=== PATIENT | female | born 1955 | race Caucasian/White ===

== ENCOUNTER → 2023-07-17 15:00 | Outpatient (CLI) | payer OTHER, SELFPAY ==
[2023-07-17 15:28] LABS: Add Manual Diff / Slide Review NO; Basophils Absolute Auto 0 /uL (0-100); Basophils Percent Auto 0.5 % (0-2); Eosinophils Absolute Auto 100 /uL (0-450); Eosinophils Percent Auto 1.1 % (2-4); Hematocrit 37.1 % (36-46); Hemoglobin 12.7 g/dL (12.0-16.0); Lymphocytes Absolute Auto 2300 /uL (1100-4500); Lymphocytes Percent Auto 37.5 % (25-40); Mean Corpuscular HGB Conc 34.2 % (30-36); Mean Corpuscular Hemoglobin 28.4 PG (26-34); Mean Corpuscular Volume 82.9 fL (80-100); Monocytes Absolute Auto 500 /uL (0-900); Monocytes Percent Auto 7.8 % (3-14); Neutrophils Absolute Auto 3300 /uL (1500-7000); Neutrophils Percent Auto 53.1 % (50-75); Platelet Count 188 X10^3/uL (150-400); Red Blood Cell Count 4.48 X10^6/uL (4.0-5.2); Red Cell Distribution Width 13.1 % (11.6-14.8); White Blood Cell Count 6.3 X10^3/uL (4.5-11.0)
[2023-07-17 15:59] LABS: Alanine Aminotransferase 40 IU/L (<35); Albumin 4.2 g/dL (3.5-5.0); Albumin Globulin Ratio 1.6 (1.0-2.8); Alkaline Phosphatase 75 U/L (38-126); Aspartate Aminotransferase 32 IU/L (14-36); BUN Creatinine Ratio 12.3 (6-22); Bilirubin Total 0.5 mg/dL (0.2-1.3); Blood Urea Nitrogen 8 mg/dL (7-17); Calcium 9.2 mg/dL (8.4-10.2); Carbon Dioxide 27 mmol/L (22-32); Chloride 99 mmol/L (98-107); Cholesterol 227 mg/dL (140-199); Estimated Glomerular Filt Rate > 60 mL/min (>60); Globulin 2.7 g/dL (1.7-4.1); Glucose 87 mg/dL (80-110); HDL Cholesterol 63 mg/dL (40-60); HEMOLYSIS < 15 (0-50); LDL Cholesterol Calculated 139 mg/dL (<100); Potassium 4.3 mmol/L (3.4-5.1); Sodium 133 mmol/L (137-145); Total Protein 6.9 g/dL (6.3-8.2); Triglycerides 125 mg/dL (35-150)
[2023-07-17 16:14] LABS: Vitamin D 25 Hydroxy (D3) 29.8 ng/mL (30.0-100.0)
[2023-07-17 16:26] LABS: TSH w/ Reflex to FT4 1.78 uIU/mL (0.47-4.68)
== END ==
PROVIDERS: PCP Student in an Organized Health Care Education/Training Program; Referring Provider Student in an Organized Health Care Education/Training Program; Visit Provider Student in an Organized Health Care Education/Training Program
DX: R53.83 Other fatigue (principal); Z13.220 Encounter for screening for lipoid disorders
CPT/HCPCS: 36415; 80053; 80061; 82306; 84443; 85025

== ENCOUNTER → 2023-08-26 14:48 | Outpatient (CLI) | payer OTHER, SELFPAY ==
--- NOTE | 2023-08-26 14:49 | DI.MG.S_ITS ---
BILATERAL DIGITAL SCREENING MAMMOGRAM 3D/2D WITH CAD: 08/26/2023 CLINICAL: Routine screening. Family history of breast cancer. Comparison is made to exams dated: 05/10/2021 mammogram, 05/25/2019 mammogram, and 03/10/2018 mammogram - outside facility. Both breasts are heterogeneously dense, which may obscure small masses (category c / 51-75% glandular tissue). Current study was also evaluated with a Computer Aided Detection (CAD) system. No significant masses, calcifications, or other findings are seen in either breast. There has been no significant interval change. IMPRESSION: NEGATIVE There is no mammographic evidence of malignancy. A 1 year screening mammogram is recommended. Based on Tyrer-Cuzick model (a risk assessment model), the patient's lifetime risk is 24.9% and her 10 year risk is 14.4%. If a patient has an elevated risk, a more comprehensive evaluation should be considered and/or a referral to a genetic counselor. The [place] [employer], [employer], and NCCN Guidelines advise the consideration of Breast MRI as an adjunct to screening mammography in patients whose Lifetime risk to develop breast cancer is 20% or higher. This exam was interpreted at Station ID: [id number]. NOTE: For mammograms, a report in lay terms will be sent to the patient. Approximately 15% of breast malignancies will not be visualized mammographically. In the management of a palpable breast mass, a negative mammogram must not discourage biopsy of a clinically suspicious lesion. Electronically Signed By: Tyrese deleon/aime:08/26/2023 16:48:21 letter sent: Normal Exam ACR BI-RADS Category 1: Negative [id number]
== END ==
PROVIDERS: PCP Student in an Organized Health Care Education/Training Program; Referring Provider Student in an Organized Health Care Education/Training Program; Visit Provider Student in an Organized Health Care Education/Training Program
DX: Z12.31 Encounter for screening mammogram for malignant neoplasm of breast (principal); Z80.3 Family history of malignant neoplasm of breast
CPT/HCPCS: 77063; 77067

== ENCOUNTER → 2023-12-10 11:40 | Outpatient (CLI) | payer OTHER, SELFPAY ==
--- NOTE | 2023-12-10 11:41 | DI.RAD.S_ITS ---
Bone Density Report Name: JAKE NELSON Age: 68 Sex: Female Ethnicity: White Date of : 1955 Indication: postmenopausal; screening for osteoporosis; Referring Provider: EDELMIRA MCINTOSH Study: Bone densitometry was performed. Exam Date: December 10, 2023 Accession number: [id number] Bone Density: Region BMD T-score Z-score Classification AP Spine(L1-L4) 0.771 -2.5 -0.5 Osteoporosis Femoral Neck (Left) 0.610 -2.2 -0.4 Osteopenia Total Hip (Left) 0.744 -1.6 -0.2 Osteopenia Femoral Neck (Right) 0.593 -2.3 -0.6 Osteopenia Total Hip (Right) 0.725 -1.8 -0.3 Osteopenia Total Hip Mean 0.735 -1.7 -0.3 Osteopenia World Health Organization criteria for BMD impression classify patients as: Normal (T-score at or above -1.0), Osteopenia (T-score between -1.0 and -2.5), or Osteoporosis (T-score at or below -2.5). 10-year Fracture Risk: FRAX not reported because: Some T-score for Spine Total or Hip Total or Femoral Neck at or below -2.5 Impression: The patient has osteoporosis, based on the Total Spine T-score. Discussion: INCREASED RISK OF FRACTURE. BONE DENSITY IS UNDESIRABLY LOW AT ONE OR MORE SKELETAL SITES, CONSISTENT WITH POSTMENOPAUSAL OSTEOPOROSIS. This patient's lowest T-score meets the World Health Organization's (WHO) criteria for osteoporosis at one or more sites (T-score -2.5 or below). In untreated patients, the risk of osteoporotic fracture increases approximately two-fold for each 1.0 SD decrease in T-score. Low bone density is not the only risk factor for fracture; also consider factors such as patient's age, frailty or poor health, risk of falling, risk of injury, previous osteoporotic fracture, family history of osteoporosis, cigarette smoking, low body weight, etc. Not everyone with low bone mineral density has osteoporosis; osteomalacia and other metabolic bone disorders should also be considered. Patients who have osteoporosis should be evaluated for specific diseases and conditions (secondary causes) that may cause or contribute to bone loss. The [place] [employer]ocrin[employer] (AACE) and National Osteoporosis Foundation (NOF) recommend pharmacologic intervention for all postmenopausal women whose T-score is in this range. The patient should follow a healthful lifestyle (good nutrition with adequate calcium and vitamin D, and appropriate weight-bearing exercise). Follow-Up: Consider a repeat BMD and Vertebral Fracture Assessment (VFA) exam in 2 years or sooner if medically necessary, to reassess this patient's status. Reported by: AMBER VANG M.D. on 12/10/2023 12:12:00 PM.
== END ==
PROVIDERS: PCP Student in an Organized Health Care Education/Training Program; Referring Provider Student in an Organized Health Care Education/Training Program; Visit Provider Student in an Organized Health Care Education/Training Program
DX: Z78.0 Asymptomatic menopausal state (principal); M81.0 Age-related osteoporosis without current pathological fracture
CPT/HCPCS: 77080

== ENCOUNTER → 2024-03-28 12:27 | Outpatient (CLI) | payer OTHER, SELFPAY ==
[2024-03-28 14:31] LABS: Alanine Aminotransferase 36 IU/L (<35); Albumin 4.5 g/dL (3.5-5.0); Albumin Globulin Ratio 1.8 (1.0-2.8); Alkaline Phosphatase 74 U/L (38-126); Aspartate Aminotransferase 31 IU/L (14-36); BUN Creatinine Ratio 15.2 (6-22); Bilirubin Total 0.5 mg/dL (0.2-1.3); Blood Urea Nitrogen 10 mg/dL (7-17); Calcium 9.2 mg/dL (8.4-10.2); Carbon Dioxide 27 mmol/L (22-32); Chloride 104 mmol/L (98-107); Estimated Glomerular Filt Rate > 60 mL/min (>60); Globulin 2.5 g/dL (1.7-4.1); Glucose 115 mg/dL (80-110); HEMOLYSIS < 15 (0-50); Potassium 4.1 mmol/L (3.4-5.1); Sodium 137 mmol/L (137-145)
[2024-03-28 17:57] LABS: Vitamin D 25 Hydroxy (D3) 55.4 ng/mL (30.0-100.0)
== END ==
LOC: LAB 12:27
PROVIDERS: Family Provider Student in an Organized Health Care Education/Training Program; PCP Student in an Organized Health Care Education/Training Program; Referring Provider Student in an Organized Health Care Education/Training Program; Visit Provider Student in an Organized Health Care Education/Training Program
DX: M81.0 Age-related osteoporosis without current pathological fracture (principal)
CPT/HCPCS: 36415; 80053; 82306

== ENCOUNTER 2024-04-08 09:00 | Outpatient (RCR) | payer OTHER, SELFPAY ==
--- NOTE | 2024-03-22 11:57 | PT.OIE ---
Current Diagnoses Pain in right shoulder (03/22/24) Pain in left shoulder (03/22/24) Stiffness of right shoulder, not elsewhere classified (03/22/24) Stiffness of left shoulder, not elsewhere classified (03/22/24) Dizziness and giddiness (03/22/24) Past Medical History (Last Updated 07/16/23 @ 20:21 by Bonnie Hernandez) Acne Allergies (~2010) Ankle pain Chicken pox (~1959) Colon polyps (~2004) Fractures (~1969) Hemorrhoid (~1988) History of urinary incontinence (~2014) Measles (~1961) Mumps (~1959) Osteopenia (~2013) Plantar warts Tinnitus Past Surgical History (Last Updated 07/16/23 @ 20:21 by Bonnie Hernandez) Anesthesia History of tooth extraction Tumor (~2011) [place] teeth removed (~1973) Visit Care Team Role Provider Type Mar Lance MD Family Provider Physician Primary Care Provider Specialty: Family Practice Obstetrics Address: [address] [place] [address] Email: [email or web address] Hailey Ramirez MD Attending Provider Physician Referring Provider Specialty: Family Practice FACILITIES OPERATIONS TECHNICIAN Address: [address] [place] [address], [address] Fax: Email: [email or web address] Physical Therapy Initial Evaluation PT-OP-A Visit Information Start: 03/22/24 11:21 Freq: Status: Active Protocol: Document 03/22/24 09:45 DCW (Rec: 03/22/24 11:45 DCW [id number]) Out-Patient Physical Therapy Visit Information Visit Information Visit Type Initial Evaluation Visit Start Time 09:45 Visit Stop Time 10:30 Visit Number 1 Number of LADLE REPAIRMAN Visits 0 Evaluation Information Evaluation Date 03/22/24 PT-OP-B Current Condition Start: 03/22/24 11:21 Freq: Status: Active Protocol: Document 03/22/24 09:45 DCW (Rec: 03/22/24 11:45 DCW [id number]) Current Condition History of Current Condition Onset Date January Current Complaints bilateral shoulder pain, stiffness, dizziness History of Current Condition Pt is a 69 year old female presenting with a 1-2 month history of bilateral shoulder pain and limited ROM. Pt notes that she began experiencing vertigo around Easter, and shortly afterward, noticed worsening shoulder pain. Pt was originally scheduled for this initial evaluation to be regarding her vertigo, however pt self-treated with Tonie maneuvers, feels it is not bothering her as much, and requested a new referral for her shoulders. Pt notes she has received massage, chiropractic, and acupuncture for her shoulders, with minimal success. Notes she struggles with overhead activities or reaching back, or weight- bearing activities through her shoulder. PT-OP-C Subjective Start: 03/22/24 11:21 Freq: Status: Active Protocol: Document 03/22/24 09:45 DCW (Rec: 03/22/24 11:45 DCW [id number]) OP-PT Subjective Patient Comments Patient Comments I've decided it's frozen shoulder, but I don't have any actual diagnosis. Patient Questionnaires Quick Dash- Upper Extremity Quick Dash UE Score 34.09% Quick Dash UE Impairment 20 to 39% Impaired (Score 20- 39) PT-OP-F Manual Assessment Start: 03/22/24 11:21 Freq: Status: Active Protocol: Document 03/22/24 09:45 DCW (Rec: 03/22/24 11:45 DCW [id number]) Manual Assessments Soft Tissue Assessment Soft Tissue Mobility Assessment Mild-moderate tone along bilateral upper traps, moderate tone bilateral pecs, tenderness at bicipital groove bilaterally PT-OP-J Posture/Palpation/Skin Start: 03/22/24 11:21 Freq: Status: Active Protocol: Document 03/22/24 09:45 DCW (Rec: 03/22/24 11:45 DCW [id number]) Posture Evaluation Position Sitting Shoulder Posture (L) Elevated,(R) Elevated Scapula Posture (L) Protracted,(R) Protracted, (L) Elevated,(R) Elevated PT-OP-K Range of Motion Start: 03/22/24 11:21 Freq: Status: Active Protocol: Document 03/22/24 09:45 DCW (Rec: 03/22/24 11:45 DCW [id number]) Shoulder Goniometric Range of Motion Shoulder Right Passive Shoulder ROM WFL No Testing Position Supine Flexion 125 Abduction 102 Comments Stopped PROM due to pain, empty end feel Right Active Shoulder ROM WFL No Testing Position Sitting Flexion 107 Abduction 86 External Rotation at 0 degrees Abduction 68 Internal Rotation Behind Back (text) R SI Left Passive Shoulder ROM WFL No Testing Position Supine Flexion 123 Abduction 94 Comments Stopped PROM due to pain, empty end feel Left Active Shoulder ROM WFL No Testing Position Sitting Flexion 96 Abduction 44 External Rotation at 0 degrees Abduction 35 Internal Rotation Behind Back (text) L glute PT-OP-L Special Tests Start: 03/22/24 11:21 Freq: Status: Active Protocol: Document 03/22/24 09:45 DCW (Rec: 03/22/24 11:45 DCW [id number]) Special Tests Shoulder Special Tests Speed's Biceps Test Results Positive bilaterally Passive ER Rotator Cuff Test Results Positive left Lift-Off Rotator Cuff Test Results Unable to position bilaterally Sung Alberto Impingement Test Results Positive bilaterally Grind Labrum Test Results Negative Belly Press Test Results Positive left Apprehension Test Test Results Negative PT-OP-M Strength Start: 03/22/24 11:21 Freq: Status: Active Protocol: Document 03/22/24 09:45 DCW (Rec: 03/22/24 11:45 DCW [id number]) Shoulder Strength Shoulder Manual Muscle Testing Right Flexion 3- Fair- Abduction (C5) 3- Fair- External Rotation 4- Good- Internal Rotation 4+ Good+ Left Flexion 3- Fair- Abduction (C5) 3- Fair- External Rotation 4- Good- Internal Rotation 4+ Good+ PT-OP-Q Treatments Start: 03/22/24 11:21 Freq: Status: Active Protocol: Document 03/22/24 09:45 DCW (Rec: 03/22/24 11:45 DCW [id number]) Therapeutic Exercises Supine Exercises Shoulder Flexion Supine Exercise Name AAROM Flexion /c PVC Side bilateral Comments HEP Serratus punch Supine Exercise Name Serratus punch Side bilateral Comments HEP Sitting Exercises Upper Trap Sitting Exercise Name Upper Trap stretch Side bilateral Standing Exercises Pec Stretch Standing Exercise Name Corner/Door pec stretch Side bilateral PT-OP-T Assessment and Plan Start: 03/22/24 11:21 Freq: Status: Active Protocol: Document 03/22/24 09:45 DCW (Rec: 03/22/24 11:57 DCW [id number]) Physical Therapy Assessment Rehab Potential Rehabilitation Potential Good Evaluation Complexity Number of Personal Factors/Comorbidities 3 or More Number of Body Systems Impaired 3 Clinical Presentation at Evaluation Evolving Impairments Impairments Activity Tolerance,Functional Activities,Functional Mobility ,Pain,Posture,ROM,Soft Tissue Mobility,Strength,Tone, Vestibular Goals Three Impairment Elevated and protracted posture of her shoulders bilaterally Production Planning Manager Goal (LTG) Pt to exhibit improve posture with positioning of bilateral scapula WNL in order to increase subacromial space and decrease impingement of supraspinatus LTG Duration 05/22/24 Two Impairment Limitations of shoulder ROM impact pt's ability to don/ doff shirt Halfway Goal (LTG) Pt to demonstrate improvement in bilateral active shoulder flexion to >130? in order to improve ability to dress herself without increased pain . LTG Duration 05/22/24 One Impairment Pt does not have an appropriate home exercise program Short Term Goal (STG) Pt to be independent and compliant with an appropriate HEP STG Duration 04/21/24 Assessment Summary Assessment Pt presents with signs and symptoms consistent with likely bilateral subacromial impingement and LH bicipital tendonitis. Positioning of bilateral scapula is in an elevated and protracted posture. Pt believes this positioning began when she was experiencing dizziness, resulting in shrugged shoulder in an attempt for increased en bloc movement. This may have changed positioning of subacromial space, resulting in impingement. Pt should benefit from skilled therapy focusing on improving strength of bilateral shoulder girdles , as well as postural repositioning of scapular and decreased inflammation of biceps. Pt provided with HEP handout for serratus punch, supine shoulder flexion, and UT/Pec stretches. If pt continues to experience issues with dizziness, may limit effectiveness of shoulder rehab if she continues to exhibit more of a protective posturing, so further vestibular testing may be indicated if symptoms persist. Physical Therapy Plan Frequency and Duration Frequency of Treatment 2x/Week Plan of Care Start Date 03/22/24 Plan of Care End Date 05/22/24 Therapeutic Interventions Therapeutic Interventions Balance Training,Canalithic Repositioning,Home Exercise Program,Joint Mobilizations, Manual Therapy,Neuromuscular Re-education,Patient/Caregiver Education,Self-Care/Home Management,Soft Tissue Mobilization,Therapeutic Activities,Therapeutic Exercises,Vestibular Rehabilitation Next Visit Focus/Plan Next Note Type Treatment Note Next Visit Plan Shoulder ROM/strengthening, posture training, assess dizziness if symptoms continue
--- NOTE | 2024-03-22 11:58 | PT.OPPOC ---
Physical, Occupational & Speech Therapy At [facility] Current Diagnoses Pain in right shoulder (03/22/24) Pain in left shoulder (03/22/24) Stiffness of right shoulder, not elsewhere classified (03/22/24) Stiffness of left shoulder, not elsewhere classified (03/22/24) Dizziness and giddiness (03/22/24) Visit Care Team Role Provider Type Mar Lance MD Family Provider Physician Primary Care Provider Specialty: Family Practice Obstetrics Address: [address] [place] [address] Email: [email or web address] Hailey Ramirez MD Attending Provider Physician Referring Provider Specialty: [facility] CLERICAL ADMINISTRATOR Address: [address] [place] [address] Fax: Email: [email or web address] Plan Of Care PT-OP-T Assessment and Plan Start: 03/22/24 11:21 Freq: Status: Active Protocol: Document 03/22/24 09:45 DCW (Rec: 03/22/24 11:57 DCW [id number]) Physical Therapy Assessment Rehab Potential Rehabilitation Potential Good Evaluation Complexity Number of Personal Factors/Comorbidities 3 or More Number of Body Systems Impaired 3 Clinical Presentation at Evaluation Evolving Impairments Impairments Activity Tolerance,Functional Activities,Functional Mobility ,Pain,Posture,ROM,Soft Tissue Mobility,Strength,Tone, Vestibular Goals Three Impairment Elevated and protracted posture of her shoulders bilaterally Manager Financial Systems Goal (LTG) Pt to exhibit improve posture with positioning of bilateral scapula WNL in order to increase subacromial space and decrease impingement of supraspinatus LTG Duration 05/22/24 Two Impairment Limitations of shoulder ROM impact pt's ability to don/ doff shirt Detention Goal (LTG) Pt to demonstrate improvement in bilateral active shoulder flexion to >130? in order to improve ability to dress herself without increased pain . LTG Duration 05/22/24 One Impairment Pt does not have an appropriate home exercise program Short Term Goal (STG) Pt to be independent and compliant with an appropriate HEP STG Duration 04/21/24 Assessment Summary Assessment Pt presents with signs and symptoms consistent with likely bilateral subacromial impingement and LH bicipital tendonitis. Positioning of bilateral scapula is in an elevated and protracted posture. Pt believes this positioning began when she was experiencing dizziness, resulting in shrugged shoulder in an attempt for increased en bloc movement. This may have changed positioning of subacromial space, resulting in impingement. Pt should benefit from skilled therapy focusing on improving strength of bilateral shoulder girdles , as well as postural repositioning of scapular and decreased inflammation of biceps. Pt provided with HEP handout for serratus punch, supine shoulder flexion, and UT/Pec stretches. If pt continues to experience issues with dizziness, may limit effectiveness of shoulder rehab if she continues to exhibit more of a protective posturing, so further vestibular testing may be indicated if symptoms persist. Physical Therapy Plan Frequency and Duration Frequency of Treatment 2x/Week Plan of Care Start Date 03/22/24 Plan of Care End Date 05/22/24 Therapeutic Interventions Therapeutic Interventions Balance Training,Canalithic Repositioning,Home Exercise Program,Joint Mobilizations, Manual Therapy,Neuromuscular Re-education,Patient/Caregiver Education,Self-Care/Home Management,Soft Tissue Mobilization,Therapeutic Activities,Therapeutic Exercises,Vestibular Rehabilitation Next Visit Focus/Plan Next Note Type Treatment Note Next Visit Plan Shoulder ROM/strengthening, posture training, assess dizziness if symptoms continue Plan of Care Dates Plan of Care Start Date 03/22/24 Plan of Care End Date 05/22/24 Electronically Signed by: Russ Taylor, PT 03/22/24 1779 If you are in agreement with this Plan of Care, please return a signed and dated copy. I have reviewed this Plan of Care and certify that the skilled therapy services above are required to meet the patient?s needs. Physician Signature Date Printed Name and Credentials Clinical Instructor Signature Printed Name and Credentials
--- NOTE | 2024-03-25 10:27 | PT.OTN ---
Current Diagnoses Pain in right shoulder (03/25/24) Pain in left shoulder (03/25/24) Stiffness of right shoulder, not elsewhere classified (03/25/24) Stiffness of left shoulder, not elsewhere classified (03/25/24) Dizziness and giddiness (03/25/24) Physical Therapy Treatment Note PT-OP-A Visit Information Start: 03/22/24 11:21 Freq: Status: Active Protocol: Document 03/25/24 09:05 DCW (Rec: 03/25/24 09:57 DCW [id number]) Out-Patient Physical Therapy Visit Information Visit Information Visit Type Treatment Note Visit Start Time 09:05 Visit Stop Time 09:45 Visit Number 2 Number of DRY WALL SPRAYER Visits 0 Evaluation Information Evaluation Date 03/22/24 PT-OP-B Current Condition Start: 03/22/24 11:21 Freq: Status: Active Protocol: Document 03/22/24 09:45 DCW (Rec: 03/22/24 11:45 DCW [id number]) Current Condition History of Current Condition Onset Date January Current Complaints bilateral shoulder pain, stiffness, dizziness History of Current Condition Pt is a 69 year old female presenting with a 1-2 month history of bilateral shoulder pain and limited ROM. Pt notes that she began experiencing vertigo around Easter, and shortly afterward, noticed worsening shoulder pain. Pt was originally scheduled for this initial evaluation to be regarding her vertigo, however pt self-treated with Tonie maneuvers, feels it is not bothering her as much, and requested a new referral for her shoulders. Pt notes she has received massage, chiropractic, and acupuncture for her shoulders, with minimal success. Notes she struggles with overhead activities or reaching back, or weight-bearing activities through her shoulder. PT-OP-C Subjective Start: 03/22/24 11:21 Freq: Status: Active Protocol: Document 03/25/24 09:05 DCW (Rec: 03/25/24 09:57 DCW [id number]) OP-PT Subjective Patient Comments Patient Comments It's gotten down to just random jabs of pain. PT-OP-F Manual Assessment Start: 03/22/24 11:21 Freq: Status: Active Protocol: Document 03/22/24 09:45 DCW (Rec: 03/22/24 11:45 DCW [id number]) Manual Assessments Soft Tissue Assessment Soft Tissue Mobility Assessment Mild-moderate tone along bilateral upper traps, moderate tone bilateral pecs, tenderness at bicipital groove bilaterally PT-OP-J Posture/Palpation/Skin Start: 03/22/24 11:21 Freq: Status: Active Protocol: Document 03/22/24 09:45 DCW (Rec: 03/22/24 11:45 DCW [id number]) Posture Evaluation Position Sitting Shoulder Posture (L) Elevated,(R) Elevated Scapula Posture (L) Protracted,(R) Protracted, (L) Elevated,(R) Elevated PT-OP-K Range of Motion Start: 03/22/24 11:21 Freq: Status: Active Protocol: Document 03/22/24 09:45 DCW (Rec: 03/22/24 11:45 DCW [id number]) Shoulder Goniometric Range of Motion Shoulder Right Passive Shoulder ROM WFL No Testing Position Supine Flexion 125 Abduction 102 Comments Stopped PROM due to pain, empty end feel Right Active Shoulder ROM WFL No Testing Position Sitting Flexion 107 Abduction 86 External Rotation at 0 degrees Abduction 68 Internal Rotation Behind Back (text) R SI Left Passive Shoulder ROM WFL No Testing Position Supine Flexion 123 Abduction 94 Comments Stopped PROM due to pain, empty end feel Left Active Shoulder ROM WFL No Testing Position Sitting Flexion 96 Abduction 44 External Rotation at 0 degrees Abduction 35 Internal Rotation Behind Back (text) L glute PT-OP-L Special Tests Start: 03/22/24 11:21 Freq: Status: Active Protocol: Document 03/22/24 09:45 DCW (Rec: 03/22/24 11:45 DCW [id number]) Special Tests Shoulder Special Tests Speed's Biceps Test Results Positive bilaterally Passive ER Rotator Cuff Test Results Positive left Lift-Off Rotator Cuff Test Results Unable to position bilaterally Sung Alberto Impingement Test Results Positive bilaterally Grind Labrum Test Results Negative Belly Press Test Results Positive left Apprehension Test Test Results Negative PT-OP-M Strength Start: 03/22/24 11:21 Freq: Status: Active Protocol: Document 03/22/24 09:45 DCW (Rec: 03/22/24 11:45 DCW [id number]) Shoulder Strength Shoulder Manual Muscle Testing Right Flexion 3- Fair- Abduction (C5) 3- Fair- External Rotation 4- Good- Internal Rotation 4+ Good+ Left Flexion 3- Fair- Abduction (C5) 3- Fair- External Rotation 4- Good- Internal Rotation 4+ Good+ PT-OP-Q Treatments Start: 03/22/24 11:21 Freq: Status: Active Protocol: Document 03/25/24 09:05 DC (Rec: 03/25/24 09:57 [facility] [id number]) Therapeutic Exercises Prone Exercises I's, Y's, T's Prone Exercise Name I's, Y's, T's Side bilateral Resistance 2# Standing Exercises Rows Standing Exercise Name Rows Side bilateral Resistance Green Extension Standing Exercise Name Shoulder Extension Side bilateral Resistance Green Manual Therapy Treatment Soft Tissue Mobilization Parascapulars Body Location B upper traps, rhomboids, r/c, levator PT-OP-T Assessment and Plan Start: 03/22/24 11:21 Freq: Status: Active Protocol: Document 03/25/24 09:05 [facility] (Rec: 03/25/24 09:57 [facility] [id number]) Physical Therapy Assessment Impairments Impairments Activity Tolerance,Functional Activities,Functional Mobility ,Pain,Posture,ROM,Soft Tissue Mobility,Strength,Tone, Vestibular Goals Three Impairment Elevated and protracted posture of her shoulders bilaterally Boat Canvas Installer Goal (LTG) Pt to exhibit improve posture with positioning of bilateral scapula WNL in order to increase subacromial space and decrease impingement of supraspinatus LTG Duration 05/22/24 Two Impairment Limitations of shoulder ROM impact pt's ability to don/ doff shirt Care Home Goal (LTG) Pt to demonstrate improvement in bilateral active shoulder flexion to >130? in order to improve ability to dress herself without increased pain . LTG Duration 05/22/24 One Impairment Pt does not have an appropriate home exercise program Short Term Goal (STG) Pt to be independent and compliant with an appropriate HEP STG Duration 04/21/24 Assessment Summary Assessment Pt already exhibiting mild improvement with bilateral AROM, flexion measured at 104? L and 121? R. Muscle tone significantly greater L vs R. Pt doing well do far with HEP, added rows and shoulder extension to help strengthen shoulder girdle. Physical Therapy Plan Frequency and Duration Frequency of Treatment 2x/Week Plan of Care Start Date 03/22/24 Plan of Care End Date 05/22/24 Therapeutic Interventions Therapeutic Interventions Balance Training,Canalithic Repositioning,Home Exercise Program,Joint Mobilizations, Manual Therapy,Neuromuscular Re-education,Patient/Caregiver Education,Self-Care/Home Management,Soft Tissue Mobilization,Therapeutic Activities,Therapeutic Exercises,Vestibular Rehabilitation Next Visit Focus/Plan Next Note Type Treatment Note Next Visit Plan Shoulder ROM/strengthening, posture training, assess dizziness if symptoms continue
--- NOTE | 2024-03-28 10:29 | PT.OTN ---
Current Diagnoses Pain in right shoulder (03/28/24) Pain in left shoulder (03/28/24) Stiffness of right shoulder, not elsewhere classified (03/28/24) Stiffness of left shoulder, not elsewhere classified (03/28/24) Dizziness and giddiness (03/28/24) Physical Therapy Treatment Note PT-OP-A Visit Information Start: 03/22/24 11:21 Freq: Status: Active Protocol: Document 03/28/24 08:59 MB (Rec: 03/28/24 09:44 MB [id number]) Out-Patient Physical Therapy Visit Information Visit Information Visit Type Treatment Note Visit Start Time 08:59 Visit Stop Time 09:39 Visit Number 3 Number of SHOP TEACHER Visits 0 Evaluation Information Evaluation Date 03/22/24 PT-OP-B Current Condition Start: 03/22/24 11:21 Freq: Status: Active Protocol: Document 03/22/24 09:45 DCW (Rec: 03/22/24 11:45 DCW [id number]) Current Condition History of Current Condition Onset Date January Current Complaints bilateral shoulder pain, stiffness, dizziness History of Current Condition Pt is a 69 year old female presenting with a 1-2 month history of bilateral shoulder pain and limited ROM. Pt notes that she began experiencing vertigo around Easter, and shortly afterward, noticed worsening shoulder pain. Pt was originally scheduled for this initial evaluation to be regarding her vertigo, however pt self-treated with Tonie maneuvers, feels it is not bothering her as much, and requested a new referral for her shoulders. Pt notes she has received massage, chiropractic, and acupuncture for her shoulders, with minimal success. Notes she struggles with overhead activities or reaching back, or weight-bearing activities through her shoulder. PT-OP-C Subjective Start: 03/22/24 11:21 Freq: Status: Active Protocol: Document 03/28/24 08:59 MB (Rec: 03/28/24 09:44 MB [id number]) OP-PT Subjective Patient Comments Patient Comments Pt reports left shoulder is stiffer than the right one and she feels stabbing in the deltoid, worse on the left. Pt has not felt dizzy since the last week of January. She had a history of dizziness with rolling over to the right and left. She saw massage therapy and chiropractor and she got better. She did have neck manipulation. Her B shoulders were not good afterwards. PT-OP-F Manual Assessment Start: 03/22/24 11:21 Freq: Status: Active Protocol: Document 03/22/24 09:45 DCW (Rec: 03/22/24 11:45 DCW [id number]) Manual Assessments Soft Tissue Assessment Soft Tissue Mobility Assessment Mild-moderate tone along bilateral upper traps, moderate tone bilateral pecs, tenderness at bicipital groove bilaterally PT-OP-J Posture/Palpation/Skin Start: 03/22/24 11:21 Freq: Status: Active Protocol: Document 03/22/24 09:45 DCW (Rec: 03/22/24 11:45 DCW [id number]) Posture Evaluation Position Sitting Shoulder Posture (L) Elevated,(R) Elevated Scapula Posture (L) Protracted,(R) Protracted, (L) Elevated,(R) Elevated PT-OP-K Range of Motion Start: 03/22/24 11:21 Freq: Status: Active Protocol: Document 03/22/24 09:45 DCW (Rec: 03/22/24 11:45 DCW [id number]) Shoulder Goniometric Range of Motion Shoulder Right Passive Shoulder ROM WFL No Testing Position Supine Flexion 125 Abduction 102 Comments Stopped PROM due to pain, empty end feel Right Active Shoulder ROM WFL No Testing Position Sitting Flexion 107 Abduction 86 External Rotation at 0 degrees Abduction 68 Internal Rotation Behind Back (text) R SI Left Passive Shoulder ROM WFL No Testing Position Supine Flexion 123 Abduction 94 Comments Stopped PROM due to pain, empty end feel Left Active Shoulder ROM WFL No Testing Position Sitting Flexion 96 Abduction 44 External Rotation at 0 degrees Abduction 35 Internal Rotation Behind Back (text) L glute PT-OP-L Special Tests Start: 03/22/24 11:21 Freq: Status: Active Protocol: Document 03/22/24 09:45 DCW (Rec: 03/22/24 11:45 DCW [id number]) Special Tests Shoulder Special Tests Speed's Biceps Test Results Positive bilaterally Passive ER Rotator Cuff Test Results Positive left Lift-Off Rotator Cuff Test Results Unable to position bilaterally Sung Alberto Impingement Test Results Positive bilaterally Grind Labrum Test Results Negative Belly Press Test Results Positive left Apprehension Test Test Results Negative PT-OP-M Strength Start: 03/22/24 11:21 Freq: Status: Active Protocol: Document 03/22/24 09:45 DCW (Rec: 03/22/24 11:45 DCW [id number]) Shoulder Strength Shoulder Manual Muscle Testing Right Flexion 3- Fair- Abduction (C5) 3- Fair- External Rotation 4- Good- Internal Rotation 4+ Good+ Left Flexion 3- Fair- Abduction (C5) 3- Fair- External Rotation 4- Good- Internal Rotation 4+ Good+ PT-OP-Q Treatments Start: 03/22/24 11:21 Freq: Status: Active Protocol: Document 03/28/24 08:59 MB (Rec: 03/28/24 09:44 MB [id number]) Manual Therapy Treatment Other Other Manual Treatments Pt hook lying with head and neck supported: increased tension right cervical vertebra lower spine greater than upper cervical spine and left side of spine. Grade III- IV mobs, B upper traps and SCM STM and MWM right SCM with PT performing TrP pressure and pt performing active rotation away, positional release B thoracic spine with increased tension on the right Neuro Re-Education Treatment Other Activities Orthostatic assessment Comments Orthostatic assessment with BP and HR in LUE: supine: 126/85 , 78; standin/86, 92; standing 1': 141/79, 89. BPPV testing Comments Negative B [place]-Hallpike and Roll Test for dizziness and nystagmus Self-Care/Home Management Treatment Education Other Education Proper sleeping position with increased pillow support under head in sidelying and less in supine, pillow between arms in side lying, ongoing hydration education, benefits of checking orthostatics and BPPV today given history of symptoms and cervical guarding , influence of cervical spine and SCM in dizziness symptoms, S&S frozen shoulder and thoracic contributions to presentation PT-OP-T Assessment and Plan Start: 03/22/24 11:21 Freq: Status: Active Protocol: Document 03/28/24 08:59 MB (Rec: 03/28/24 09:44 MB [id number]) Physical Therapy Assessment Impairments Impairments Activity Tolerance,Functional Activities,Functional Mobility ,Pain,Posture,ROM,Soft Tissue Mobility,Strength,Tone, Vestibular Goals Three Impairment Elevated and protracted posture of her shoulders bilaterally Detention Goal (LTG) Pt to exhibit improve posture with positioning of bilateral scapula WNL in order to increase subacromial space and decrease impingement of supraspinatus LTG Duration 05/22/24 Two Impairment Limitations of shoulder ROM impact pt's ability to don/ doff shirt Detention Goal (LTG) Pt to demonstrate improvement in bilateral active shoulder flexion to >130? in order to improve ability to dress herself without increased pain . LTG Duration 05/22/24 One Impairment Pt does not have an appropriate home exercise program Short Term Goal (STG) Pt to be independent and compliant with an appropriate HEP STG Duration 04/21/24 Assessment Summary Assessment Gross active shoulder flexion and abduction to 100 B. Negative B Roll Test and [place]- Hallpike for dizziness and nystagmus today. Pt with increased right cervical and thoracic tension compared to the left as well as SCM tension and postural changes contribut to shoulder issues and dizziness. Orthostatics are negative. Con't thoracic, cervical mobility treatment and exercises, shoulder progression. Physical Therapy Plan Frequency and Duration Frequency of Treatment 2x/Week Plan of Care Start Date 03/22/24 Plan of Care End Date 05/22/24 Therapeutic Interventions Therapeutic Interventions Balance Training,Canalithic Repositioning,Home Exercise Program,Joint Mobilizations, Manual Therapy,Neuromuscular Re-education,Patient/Caregiver Education,Self-Care/Home Management,Soft Tissue Mobilization,Therapeutic Activities,Therapeutic Exercises,Vestibular Rehabilitation Next Visit Focus/Plan Next Note Type Treatment Note Next Visit Plan Consider therapy ball work for thoracic and pect and QL mobility, ongoing manual work, progress shoulder strengthening and consider over pool noodle including ROM activities with cranium weight off of spine
--- NOTE | 2024-03-30 09:45 | PT.OTN ---
Current Diagnoses Pain in right shoulder (03/30/24) Pain in left shoulder (03/30/24) Stiffness of right shoulder, not elsewhere classified (03/30/24) Stiffness of left shoulder, not elsewhere classified (03/30/24) Dizziness and giddiness (03/30/24) Physical Therapy Treatment Note PT-OP-A Visit Information Start: 03/22/24 11:21 Freq: Status: Active Protocol: Document 03/30/24 09:02 MB (Rec: 03/30/24 09:44 MB [id number]) Out-Patient Physical Therapy Visit Information Visit Information Visit Type Treatment Note Visit Start Time 09:02 Visit Stop Time 09:42 Visit Number 4 Number of LOSS PREVENTION DETECTIVE Visits 0 Evaluation Information Evaluation Date 03/22/24 PT-OP-B Current Condition Start: 03/22/24 11:21 Freq: Status: Active Protocol: Document 03/22/24 09:45 DCW (Rec: 03/22/24 11:45 DCW [id number]) Current Condition History of Current Condition Onset Date January Current Complaints bilateral shoulder pain, stiffness, dizziness History of Current Condition Pt is a 69 year old female presenting with a 1-2 month history of bilateral shoulder pain and limited ROM. Pt notes that she began experiencing vertigo around Easter, and shortly afterward, noticed worsening shoulder pain. Pt was originally scheduled for this initial evaluation to be regarding her vertigo, however pt self-treated with Tonie maneuvers, feels it is not bothering her as much, and requested a new referral for her shoulders. Pt notes she has received massage, chiropractic, and acupuncture for her shoulders, with minimal success. Notes she struggles with overhead activities or reaching back, or weight-bearing activities through her shoulder. PT-OP-C Subjective Start: 03/22/24 11:21 Freq: Status: Active Protocol: Document 03/30/24 09:02 MB (Rec: 03/30/24 09:44 MB [id number]) OP-PT Subjective Patient Comments Patient Comments Pt reports ongoing severe B shoulder pain at night. Pt con 't to sleep on her side with enough pillow support under head. PT-OP-F Manual Assessment Start: 03/22/24 11:21 Freq: Status: Active Protocol: Document 03/22/24 09:45 DCW (Rec: 03/22/24 11:45 DCW [id number]) Manual Assessments Soft Tissue Assessment Soft Tissue Mobility Assessment Mild-moderate tone along bilateral upper traps, moderate tone bilateral pecs, tenderness at bicipital groove bilaterally PT-OP-J Posture/Palpation/Skin Start: 03/22/24 11:21 Freq: Status: Active Protocol: Document 03/22/24 09:45 DCW (Rec: 03/22/24 11:45 DCW [id number]) Posture Evaluation Position Sitting Shoulder Posture (L) Elevated,(R) Elevated Scapula Posture (L) Protracted,(R) Protracted, (L) Elevated,(R) Elevated PT-OP-K Range of Motion Start: 03/22/24 11:21 Freq: Status: Active Protocol: Document 03/22/24 09:45 DCW (Rec: 03/22/24 11:45 DCW [id number]) Shoulder Goniometric Range of Motion Shoulder Right Passive Shoulder ROM WFL No Testing Position Supine Flexion 125 Abduction 102 Comments Stopped PROM due to pain, empty end feel Right Active Shoulder ROM WFL No Testing Position Sitting Flexion 107 Abduction 86 External Rotation at 0 degrees Abduction 68 Internal Rotation Behind Back (text) R SI Left Passive Shoulder ROM WFL No Testing Position Supine Flexion 123 Abduction 94 Comments Stopped PROM due to pain, empty end feel Left Active Shoulder ROM WFL No Testing Position Sitting Flexion 96 Abduction 44 External Rotation at 0 degrees Abduction 35 Internal Rotation Behind Back (text) L glute PT-OP-L Special Tests Start: 03/22/24 11:21 Freq: Status: Active Protocol: Document 03/22/24 09:45 DCW (Rec: 03/22/24 11:45 DCW [id number]) Special Tests Shoulder Special Tests Speed's Biceps Test Results Positive bilaterally Passive ER Rotator Cuff Test Results Positive left Lift-Off Rotator Cuff Test Results Unable to position bilaterally Sung Alberto Impingement Test Results Positive bilaterally Grind Labrum Test Results Negative Belly Press Test Results Positive left Apprehension Test Test Results Negative PT-OP-M Strength Start: 03/22/24 11:21 Freq: Status: Active Protocol: Document 03/22/24 09:45 DCW (Rec: 03/22/24 11:45 DCW [id number]) Shoulder Strength Shoulder Manual Muscle Testing Right Flexion 3- Fair- Abduction (C5) 3- Fair- External Rotation 4- Good- Internal Rotation 4+ Good+ Left Flexion 3- Fair- Abduction (C5) 3- Fair- External Rotation 4- Good- Internal Rotation 4+ Good+ PT-OP-Q Treatments Start: 03/22/24 11:21 Freq: Status: Active Protocol: Document 03/30/24 09:02 MB (Rec: 03/30/24 09:44 MB [id number]) Therapeutic Exercises Supine Exercises Shoulder Flexion Comments Thumb up holding cane and B limitation Serratus punch Comments Thumb up holding cane Sitting Exercises Upper Trap Comments I demonstration in sitting today Standing Exercises Racquet ball STM Equipment Used Racquet ball Comments Intrascapular muscles, MWM infra, pulsing for ribs Rows Standing Exercise Name Rows Side bilateral Resistance Green Comments Several reps and band at waist height Extension Standing Exercise Name Shoulder Extension Side bilateral Resistance Green Comments Several reps, cues to keep arms straight, band high Pec Stretch Comments Hand low Other Exercises Pool noodle exercises Comments Lie on pool noodle and pect stretch PT-OP-T Assessment and Plan Start: 03/22/24 11:21 Freq: Status: Active Protocol: Document 03/30/24 09:02 MB (Rec: 03/30/24 09:44 MB [id number]) Physical Therapy Assessment Impairments Impairments Activity Tolerance,Functional Activities,Functional Mobility ,Pain,Posture,ROM,Soft Tissue Mobility,Strength,Tone, Vestibular Goals Three Impairment Elevated and protracted posture of her shoulders bilaterally License Registration Examiner Goal (LTG) Pt to exhibit improve posture with positioning of bilateral scapula WNL in order to increase subacromial space and decrease impingement of supraspinatus LTG Duration 05/22/24 Two Impairment Limitations of shoulder ROM impact pt's ability to don/ doff shirt Mcfp Goal (LTG) Pt to demonstrate improvement in bilateral active shoulder flexion to >130? in order to improve ability to dress herself without increased pain . LTG Duration 05/22/24 One Impairment Pt does not have an appropriate home exercise program Short Term Goal (STG) Pt to be independent and compliant with an appropriate HEP STG Duration 04/21/24 Assessment Summary Assessment Since pt is 69 y/o female with B shoulder pain at night and shoulder range changes, may benefit from following up with PCP about hormone testing/work-up to see if hormonal imbalance is contributory to adhesive capsulitis symptoms. Her thoracic tension and forward head also contribute to shoulder presentation and initiated postural work over pool noodle today. Physical Therapy Plan Frequency and Duration Frequency of Treatment 2x/Week Plan of Care Start Date 03/22/24 Plan of Care End Date 05/22/24 Therapeutic Interventions Therapeutic Interventions Balance Training,Canalithic Repositioning,Home Exercise Program,Joint Mobilizations, Manual Therapy,Neuromuscular Re-education,Patient/Caregiver Education,Self-Care/Home Management,Soft Tissue Mobilization,Therapeutic Activities,Therapeutic Exercises,Vestibular Rehabilitation Other Referrals/Consults Referrals/Consults Recommended Consider talking to doctor about hormonal changes/getting estrogen checked post- menopausal d/t B shoulder pain that is bad at night and shoulder ROM changes Next Visit Focus/Plan Next Note Type Treatment Note Next Visit Plan Progress work over pool noodle or foam roller to help thoracic spine and to unweight neck to do shoulder exercises , other thoracic flexibilty work with progression
--- NOTE | 2024-04-06 10:30 | PT.OTN ---
Current Diagnoses Pain in right shoulder (04/06/24) Pain in left shoulder (04/06/24) Stiffness of right shoulder, not elsewhere classified (04/06/24) Stiffness of left shoulder, not elsewhere classified (04/06/24) Dizziness and giddiness (04/06/24) Physical Therapy Treatment Note PT-OP-A Visit Information Start: 03/22/24 11:21 Freq: Status: Active Protocol: Document 04/06/24 09:45 DCW (Rec: 04/06/24 10:30 DCW [id number]) Out-Patient Physical Therapy Visit Information Visit Information Visit Type Treatment Note Visit Start Time 09:45 Visit Stop Time 10:30 Visit Number 5 Number of AUTOMOTIVE TIRE TESTER Visits 0 Evaluation Information Evaluation Date 03/22/24 PT-OP-B Current Condition Start: 03/22/24 11:21 Freq: Status: Active Protocol: Document 03/22/24 09:45 DCW (Rec: 03/22/24 11:45 DCW [id number]) Current Condition History of Current Condition Onset Date January Current Complaints bilateral shoulder pain, stiffness, dizziness History of Current Condition Pt is a 69 year old female presenting with a 1-2 month history of bilateral shoulder pain and limited ROM. Pt notes that she began experiencing vertigo around [place], and shortly afterward, noticed worsening shoulder pain. Pt was originally scheduled for this initial evaluation to be regarding her vertigo, however pt self-treated with Tonie maneuvers, feels it is not bothering her as much, and requested a new referral for her shoulders. Pt notes she has received massage, chiropractic, and acupuncture for her shoulders, with minimal success. Notes she struggles with overhead activities or reaching back, or weight-bearing activities through her shoulder. PT-OP-C Subjective Start: 03/22/24 11:21 Freq: Status: Active Protocol: Document 04/06/24 09:45 DCW (Rec: 04/06/24 10:30 DCW [id number]) OP-PT Subjective Patient Comments Patient Comments Pt notes exercises are going well, but she's having pretty significant pain that moves around. Has been able to do more of her HEP. PT-OP-F Manual Assessment Start: 03/22/24 11:21 Freq: Status: Active Protocol: Document 03/22/24 09:45 DCW (Rec: 03/22/24 11:45 DCW [id number]) Manual Assessments Soft Tissue Assessment Soft Tissue Mobility Assessment Mild-moderate tone along bilateral upper traps, moderate tone bilateral pecs, tenderness at bicipital groove bilaterally PT-OP-J Posture/Palpation/Skin Start: 03/22/24 11:21 Freq: Status: Active Protocol: Document 03/22/24 09:45 DCW (Rec: 03/22/24 11:45 DCW [id number]) Posture Evaluation Position Sitting Shoulder Posture (L) Elevated,(R) Elevated Scapula Posture (L) Protracted,(R) Protracted, (L) Elevated,(R) Elevated PT-OP-K Range of Motion Start: 03/22/24 11:21 Freq: Status: Active Protocol: Document 03/22/24 09:45 DCW (Rec: 03/22/24 11:45 DCW [id number]) Shoulder Goniometric Range of Motion Shoulder Right Passive Shoulder ROM WFL No Testing Position Supine Flexion 125 Abduction 102 Comments Stopped PROM due to pain, empty end feel Right Active Shoulder ROM WFL No Testing Position Sitting Flexion 107 Abduction 86 External Rotation at 0 degrees Abduction 68 Internal Rotation Behind Back (text) R SI Left Passive Shoulder ROM WFL No Testing Position Supine Flexion 123 Abduction 94 Comments Stopped PROM due to pain, empty end feel Left Active Shoulder ROM WFL No Testing Position Sitting Flexion 96 Abduction 44 External Rotation at 0 degrees Abduction 35 Internal Rotation Behind Back (text) L glute PT-OP-L Special Tests Start: 03/22/24 11:21 Freq: Status: Active Protocol: Document 03/22/24 09:45 DCW (Rec: 03/22/24 11:45 DCW [id number]) Special Tests Shoulder Special Tests Speed's Biceps Test Results Positive bilaterally Passive ER Rotator Cuff Test Results Positive left Lift-Off Rotator Cuff Test Results Unable to position bilaterally Sung Alberto Impingement Test Results Positive bilaterally Grind Labrum Test Results Negative Belly Press Test Results Positive left Apprehension Test Test Results Negative PT-OP-M Strength Start: 03/22/24 11:21 Freq: Status: Active Protocol: Document 03/22/24 09:45 DCW (Rec: 03/22/24 11:45 DCW [id number]) Shoulder Strength Shoulder Manual Muscle Testing Right Flexion 3- Fair- Abduction (C5) 3- Fair- External Rotation 4- Good- Internal Rotation 4+ Good+ Left Flexion 3- Fair- Abduction (C5) 3- Fair- External Rotation 4- Good- Internal Rotation 4+ Good+ PT-OP-Q Treatments Start: 03/22/24 11:21 Freq: Status: Active Protocol: Document 04/06/24 09:45 DCW (Rec: 04/06/24 10:30 DCW [id number]) Therapeutic Exercises Standing Exercises Wall circles Standing Exercise Name Ball circles on wall Side bilateral Comments Flexion, Abduction PNF Standing Exercise Name D1/D2 UE Flexion Side bilateral Resistance 2# Flexion Standing Exercise Name Shoulder Flexion Side bilateral Resistance 2# Abduction Standing Exercise Name Shoulder Abduction Side bilateral Resistance 2# Rows Standing Exercise Name Rows Side bilateral Resistance Green Comments Several reps and band at waist height Other Exercises Resisted Ambulation Other Exercise Name Resisted UE side-stepping Resistance Lv 1 Manual Therapy Treatment Soft Tissue Mobilization Cervical Paraspinals Body Location SCM, Suboccipitals Mobilization Type Strumming,Sustained Pressure Parascapulars Body Location B upper traps, rhomboids, r/c, levator Mobilization Type Strumming,Sustained Pressure PT-OP-T Assessment and Plan Start: 03/22/24 11:21 Freq: Status: Active Protocol: Document 04/06/24 09:45 DCW (Rec: 04/06/24 10:30 DCW [id number]) Physical Therapy Assessment Impairments Impairments Activity Tolerance,Functional Activities,Functional Mobility ,Pain,Posture,ROM,Soft Tissue Mobility,Strength,Tone, Vestibular Goals Three Impairment Elevated and protracted posture of her shoulders bilaterally Mud Jack Nozzleman Goal (LTG) Pt to exhibit improve posture with positioning of bilateral scapula WNL in order to increase subacromial space and decrease impingement of supraspinatus LTG Duration 05/22/24 Two Impairment Limitations of shoulder ROM impact pt's ability to don/ doff shirt Mud Jack Nozzleman Goal (LTG) Pt to demonstrate improvement in bilateral active shoulder flexion to >130? in order to improve ability to dress herself without increased pain . LTG Duration 05/22/24 One Impairment Pt does not have an appropriate home exercise program Short Term Goal (STG) Pt to be independent and compliant with an appropriate HEP STG Duration 04/21/24 Assessment Summary Assessment Pt happy with recent gains in function, but still limited with some participation in activity due to pain and tingling. Pt unsure if she wants to continue with therapy at this time, will discuss more next visit. Physical Therapy Plan Frequency and Duration Frequency of Treatment 2x/Week Plan of Care Start Date 03/22/24 Plan of Care End Date 05/22/24 Therapeutic Interventions Therapeutic Interventions Balance Training,Canalithic Repositioning,Home Exercise Program,Joint Mobilizations, Manual Therapy,Neuromuscular Re-education,Patient/Caregiver Education,Self-Care/Home Management,Soft Tissue Mobilization,Therapeutic Activities,Therapeutic Exercises,Vestibular Rehabilitation Next Visit Focus/Plan Next Note Type Treatment Note Next Visit Plan Progress work over pool noodle or foam roller to help thoracic spine and to unweight neck to do shoulder exercises , other thoracic flexibilty work with progression
--- NOTE | 2024-04-08 09:43 | PT.OTN ---
Current Diagnoses Pain in right shoulder (04/08/24) Pain in left shoulder (04/08/24) Stiffness of right shoulder, not elsewhere classified (04/08/24) Stiffness of left shoulder, not elsewhere classified (04/08/24) Dizziness and giddiness (04/08/24) Physical Therapy Treatment Note PT-OP-A Visit Information Start: 03/22/24 11:21 Freq: Status: Active Protocol: Document 04/08/24 09:04 DCW (Rec: 04/08/24 09:43 DCW [id number]) Out-Patient Physical Therapy Visit Information Visit Information Visit Type Discharge Summary Visit Start Time 09:04 Visit Stop Time 09:35 Visit Number 6 Number of AIR POLLUTION AUDITOR Visits 0 Evaluation Information Evaluation Date 03/22/24 PT-OP-B Current Condition Start: 03/22/24 11:21 Freq: Status: Active Protocol: Document 03/22/24 09:45 DCW (Rec: 03/22/24 11:45 DCW [id number]) Current Condition History of Current Condition Onset Date January Current Complaints bilateral shoulder pain, stiffness, dizziness History of Current Condition Pt is a 69 year old female presenting with a 1-2 month history of bilateral shoulder pain and limited ROM. Pt notes that she began experiencing vertigo around Easter, and shortly afterward, noticed worsening shoulder pain. Pt was originally scheduled for this initial evaluation to be regarding her vertigo, however pt self-treated with Tonie maneuvers, feels it is not bothering her as much, and requested a new referral for her shoulders. Pt notes she has received massage, chiropractic, and acupuncture for her shoulders, with minimal success. Notes she struggles with overhead activities or reaching back, or weight-bearing activities through her shoulder. PT-OP-C Subjective Start: 03/22/24 11:21 Freq: Status: Active Protocol: Document 04/08/24 09:04 DCW (Rec: 04/08/24 09:43 DCW [id number]) OP-PT Subjective Patient Comments Patient Comments I feel so much stronger, but the pain is still there. PT-OP-F Manual Assessment Start: 03/22/24 11:21 Freq: Status: Active Protocol: Document 04/08/24 09:04 DCW (Rec: 04/08/24 09:17 DCW [id number]) Manual Assessments Soft Tissue Assessment Soft Tissue Mobility Assessment Mild tone along bilateral upper traps, moderate tone bilateral pecs PT-OP-J Posture/Palpation/Skin Start: 03/22/24 11:21 Freq: Status: Active Protocol: Document 03/22/24 09:45 DCW (Rec: 03/22/24 11:45 DCW [id number]) Posture Evaluation Position Sitting Shoulder Posture (L) Elevated,(R) Elevated Scapula Posture (L) Protracted,(R) Protracted, (L) Elevated,(R) Elevated PT-OP-K Range of Motion Start: 03/22/24 11:21 Freq: Status: Active Protocol: Document 04/08/24 09:04 DCW (Rec: 04/08/24 09:17 DCW [id number]) Shoulder Goniometric Range of Motion Shoulder Right Active Shoulder ROM WFL No Testing Position Sitting Flexion 130 Abduction 114 External Rotation at 0 degrees Abduction 67 Internal Rotation Behind Back (text) R SI Left Active Shoulder ROM WFL No Testing Position Sitting Flexion 111 Abduction 65 External Rotation at 0 degrees Abduction 52 Internal Rotation Behind Back (text) L glute PT-OP-L Special Tests Start: 03/22/24 11:21 Freq: Status: Active Protocol: Document 04/08/24 09:04 DCW (Rec: 04/08/24 09:17 DCW [id number]) Special Tests Shoulder Special Tests Speed's Biceps Test Results Positive left Passive ER Rotator Cuff Test Results Positive left Lift-Off Rotator Cuff Test Results Unable to position bilaterally Sung Alberto Impingement Test Results Negative Grind Labrum Test Results Negative Belly Press Test Results Positive left Apprehension Test Test Results Negative PT-OP-M Strength Start: 03/22/24 11:21 Freq: Status: Active Protocol: Document 04/08/24 09:04 DCW (Rec: 04/08/24 09:17 DCW [id number]) Shoulder Strength Shoulder Manual Muscle Testing Right Flexion 3- Fair- Abduction (C5) 3- Fair- External Rotation 4- Good- Internal Rotation 4+ Good+ Left Flexion 3- Fair- Abduction (C5) 3- Fair- External Rotation 4- Good- Internal Rotation 4+ Good+ PT-OP-Q Treatments Start: 03/22/24 11:21 Freq: Status: Active Protocol: Document 04/06/24 09:45 DCW (Rec: 04/06/24 10:30 [facility] [id number]) Therapeutic Exercises Standing Exercises Wall circles Standing Exercise Name Ball circles on wall Side bilateral Comments Flexion, Abduction PNF Standing Exercise Name D1/D2 UE Flexion Side bilateral Resistance 2# Flexion Standing Exercise Name Shoulder Flexion Side bilateral Resistance 2# Abduction Standing Exercise Name Shoulder Abduction Side bilateral Resistance 2# Rows Standing Exercise Name Rows Side bilateral Resistance Green Comments Several reps and band at waist height Other Exercises Resisted Ambulation Other Exercise Name Resisted UE side-stepping Resistance Lv 1 Manual Therapy Treatment Soft Tissue Mobilization Cervical Paraspinals Body Location SCM, Suboccipitals Mobilization Type Strumming,Sustained Pressure Parascapulars Body Location B upper traps, rhomboids, r/c, levator Mobilization Type Strumming,Sustained Pressure PT-OP-T Assessment and Plan Start: 03/22/24 11:21 Freq: Status: Active Protocol: Document 04/08/24 09:04 [facility] (Rec: 04/08/24 09:43 [facility] [id number]) Physical Therapy Assessment Impairments Impairments Activity Tolerance,Functional Activities,Functional Mobility ,Pain,Posture,ROM,Soft Tissue Mobility,Strength,Tone, Vestibular Goals Three Impairment Elevated and protracted posture of her shoulders bilaterally [employer] Goal (LTG) Pt to exhibit improve posture with positioning of bilateral scapula WNL in order to increase subacromial space and decrease impingement of supraspinatus LTG Duration 05/22/24 Two Impairment Limitations of shoulder ROM impact pt's ability to don/ doff shirt [employer] Goal (LTG) Pt to demonstrate improvement in bilateral active shoulder flexion to >130? in order to improve ability to dress herself without increased pain . LTG Duration 05/22/24 One Impairment Pt does not have an appropriate home exercise program Short Term Goal (STG) Pt to be independent and compliant with an appropriate HEP STG Duration 04/21/24 Assessment Summary Assessment Pt progressing toward all goals, at this point, feels comfortable with independent HEP. Pt requesting discharge at this time. Discussed that if pain does not improve over the next ~one month, pt may benefit from further imaging. Pt understands that she will require a new referral in order to return to skilled PT in the future. Physical Therapy Plan Frequency and Duration Frequency of Treatment 2x/Week Plan of Care Start Date 03/22/24 Plan of Care End Date 08/04/24 Therapeutic Interventions Therapeutic Interventions Balance Training,Canalithic Repositioning,Home Exercise Program,Joint Mobilizations, Manual Therapy,Neuromuscular Re-education,Patient/Caregiver Education,Self-Care/Home Management,Soft Tissue Mobilization,Therapeutic Activities,Therapeutic Exercises,Vestibular Rehabilitation Discharge Physical Therapy Discharge Reasons Patient Request Next Visit Focus/Plan Next Note Type Discharge Summary
== END 2024-05-09 11:05 ==
LOC: PHYS 09:00
PROVIDERS: Family Provider Student in an Organized Health Care Education/Training Program; PCP Student in an Organized Health Care Education/Training Program; Referring Provider Family Medicine; Visit Provider Family Medicine
DX: M25.511 Pain in right shoulder (principal); M25.512 Pain in left shoulder; M25.612 Stiffness of left shoulder, not elsewhere classified; M25.611 Stiffness of right shoulder, not elsewhere classified; R42 Dizziness and giddiness
CPT/HCPCS: 97110; 97112; 97140; 97162; 97535

== ENCOUNTER 2024-05-11 15:31 | Emergency (ER) | payer OTHER, SELFPAY ==
[2024-05-11] VITALS (7 sets, daily range): BP systolic 109–115; BP diastolic 57–69; PULSE 70–80; RESP 16–18; TEMP 36.9; O2SAT 93–98; BMI 26.5
--- NOTE | 2024-05-11 15:47 | DI.RAD.S_ITS ---
PROCEDURE: XR HAND RT MIN 3V INDICATIONS: pain/bruising s/p fall TECHNIQUE: 3 views of the hand(s) acquired. COMPARISON: None. FINDINGS: Bones: Diffuse osteopenia. Mildly comminuted mildly displaced shaft fracture of the proximal phalanx of the 5th finger. Carpal bones are normally aligned. No suspicious bony lesions. Soft tissues: No suspicious soft tissue calcifications. IMPRESSION: Diffuse osteopenia with mildly comminuted, mildly displaced shaft fracture of the proximal phalanx of the 5th finger. Dictated by: Nishant Cervantes M.D. on 05/11/2024 at 17:18 Approved by: Nishant Cervantes M.D. on 05/11/2024 at 17:19
--- NOTE | 2024-05-11 16:47 | ED_ITS ---
HPI - Fall General Chief Complaint: Fall Stated Complaint: fell/head and hand inj Time Seen by Provider: 05/11/24 16:10 Source: patient Mode of arrival: Ambulatory History of Present Illness HPI Narrative: 69-year-old female presents for general evaluation after falling yesterday. Patient tripped on the sidewalk and landed on her right hand and then struck her right face against the ground. Denies loss of consciousness, denies use of blood thinner. Reports general soreness in her hand and face. No other complaints today. Related Data Previous Rx's Medication Instructions Recorded cholecalciferol (vitamin D3) 50 50 mcg PO DAILY #90 tabs 07/23/23 mcg (2,000 unit) tablet Allergies Allergy/AdvReac Type Severity Reaction Status Date / Time No Known Drug Allergies Allergy Unverified 05/11/24 15:47 Patient History Medical History Plantar warts Acne Allergies (~2010) Osteopenia (~2013) Fractures (~1969) Ankle pain Mumps (~1959) Measles (~1961) Chicken pox (~1959) Tinnitus History of urinary incontinence (~2014) Hemorrhoid (~1988) Colon polyps (~2004) Surgical History Anesthesia [place] teeth removed (~1973) History of tooth extraction Tumor (~2011) Family History Father Stroke Mother Congestive heart failure Brother Cancer Grandfather History of heart disease Grandfather Cancer Grandmother Cancer Social History Smoking Status: Former smoker Smoking Status: Former smoker Substance Use Type: does not use Exam Initial Vital Signs Initial Vital Signs: Vital Signs Temperature 98.5 F 05/11/24 15:40 Pulse Rate 74 05/11/24 15:40 Respiratory Rate 16 05/11/24 15:40 Blood Pressure 109/57 L 05/11/24 15:40 Pulse Oximetry 95 05/11/24 15:40 Oxygen Delivery Method Room Air 05/11/24 15:40 Const: Awake, alert, no acute distress, nontoxic appearing HEENT: TM normal bilaterally, PERRLA, EOMI, minimal abrasion right cheek MSK: Swelling and bruising dorsum of right hand near 4th and 5th digit Skin: Warm, Dry, minimal abrasion Neuro: AO x3, CN II-XII grossly intact, moves all extremities Course Orders Ordered: ED Orders 05/11/24 15:47 XR hand RT min 3V Stat 05/11/24 16:45 CT head/brain wo con Stat Discontinued Medications Ibuprofen (Ibuprofen 400 Mg Tablet) 400 mg PO NOW ONE Stop: 05/11/24 17:54 Last Admin: 05/11/24 17:59 Dose: 400 mg Documented By: RB Vital Signs Vital signs: Vital Signs - 8 hr 05/11/24 15:40 05/11/24 15:57 05/11/24 15:58 Temperature 98.5 F Pulse Rate 74 73 73 Respiratory Rate 16 Blood Pressure 109/57 L Pulse Oximetry 95 97 96 Oxygen Delivery Method Room Air 05/11/24 15:58 05/11/24 16:00 05/11/24 16:00 Temperature Pulse Rate 75 Respiratory Rate Blood Pressure 113/68 115/69 Pulse Oximetry 94 Oxygen Delivery Method 05/11/24 16:30 05/11/24 16:30 05/11/24 17:00 Temperature Pulse Rate 70 70 Respiratory Rate Blood Pressure 109/61 Pulse Oximetry 93 94 Oxygen Delivery Method 05/11/24 18:00 Temperature Pulse Rate 80 Respiratory Rate 18 Blood Pressure 112/67 Pulse Oximetry 98 Oxygen Delivery Method Room Air MDM - Fall Imaging Data CT scan - head: Radiologist's Impression: PROCEDURE: CT HEAD/BRAIN WO CON INDICATIONS: glf, R head injury TECHNIQUE: Noncontrast 4.5 mm thick angled axial sections acquired from the foramen magnum to the vertex, with coronal and sagittal reformats. For radiation dose reduction, the following was used: automated exposure control, adjustment of mA and/or kV according to patient size. COMPARISON: None. FINDINGS: Image quality: Diagnostic. CSF spaces: Basal cisterns are patent. No extra-axial fluid collections. Ventricles are normal in size and shape. Brain: No midline shift. No intracranial masses or hemorrhage. Ruby-white matter interface is normal. Skull and face: Calvarium and visualized facial bones are intact, without suspicious lesions. Sinuses: Visualized sinuses and mastoids are clear. IMPRESSION: Mild atrophy and white matter chronic ischemic change without intracranial hemorrhage or mass effect. Approved by: Andrea Storey M.D. on 05/11/2024 at 17:25 Extremity x-ray #1: Radiologist's Impression: PROCEDURE: XR HAND RT MIN 3V INDICATIONS: pain/bruising s/p fall TECHNIQUE: 3 views of the hand(s) acquired. COMPARISON: None. FINDINGS: Bones: Diffuse osteopenia. Mildly comminuted mildly displaced shaft fracture of the proximal phalanx of the 5th finger. Carpal bones are normally aligned. No suspicious bony lesions. Soft tissues: No suspicious soft tissue calcifications. IMPRESSION: Diffuse osteopenia with mildly comminuted, mildly displaced shaft fracture of the proximal phalanx of the 5th finger. Dictated by: Nishant Cervantes M.D. on 05/11/2024 at 17:18 Approved by: Nishant Cervantes M.D. on 05/11/2024 at 17:19 MDM Narrative Medical decision making narrative: Ground level fall 24 hours ago. Patient's hand is swollen, she was neurol ogically intact, is able to wiggle all fingers. CT imaging negative for acute findings. X-ray of the hand shows 5th proximal phalanx fracture. Placed in splint, counseled use of Tylenol and ice as well as elevation for comfort. Orthopedic referral provided. Discharge Plan Departure Patient Disposition: Home Clinical Impression: Finger fracture Instructions: DI for Finger Fracture Activity Restrictions/Additional Instructions: Your x-ray showed that you have a pinky finger fracture. Wear the splint for support. Take Tylenol and ibuprofen as needed for comfort. Follow up with Orthopedic surgery Prescriptions: No Action cholecalciferol (vitamin D3) 50 mcg (2,000 unit) tablet 50 mcg PO DAILY Qty: 90 3RF Referrals: Donna Acharya MD [Physician] - Mar Lance MD [Primary Care Provider] - Stand Alone Forms: Patient Portal/API
[2024-05-11] MEDS: IBUPROFEN 400 MG TABLET PO (17:59)
== END 2024-05-11 18:01 | disposition home or self-care (01) ==
PROVIDERS: Emergency Provider Emergency Medicine; Family Provider Student in an Organized Health Care Education/Training Program; PCP Student in an Organized Health Care Education/Training Program
DX: S62.616A Displaced fracture of proximal phalanx of right little finger, initial encounter for closed fracture (principal); W01.0XXA Fall on same level from slipping, tripping and stumbling without subsequent striking against object, initial encounter
CPT/HCPCS: 70450; 73130; 99283; 99284

== ENCOUNTER → 2024-09-01 17:37 | Outpatient (CLI) | payer OTHER, SELFPAY ==
--- NOTE | 2024-09-01 17:38 | DI.MG.S_ITS ---
BILATERAL DIGITAL SCREENING MAMMOGRAM 3D/2D WITH CAD: 09/01/2024 CLINICAL: Routine screening. Family history of breast cancer. Comparison is made to exams dated: 08/26/2023 mammogram - [facility], 05/10/2021 mammogram, and 05/25/2019 mammogram - outside facility. The breasts are heterogeneously dense, which may obscure small masses (category c / 51-75% glandular tissue). Current study was also evaluated with a Computer Aided Detection (CAD) system. No significant masses, calcifications, or other findings are seen in either breast. There has been no significant interval change. IMPRESSION: NEGATIVE There is no mammographic evidence of malignancy. A 1 year screening mammogram is recommended. Based on Tyrer-Cuzick model (a risk assessment model), the patient's lifetime risk is 23.7% and her 10 year risk is 14.5%. If a patient has an elevated risk, a more comprehensive evaluation should be considered and/or a referral to a genetic counselor. The [place] [employer], [place] [employer], and NCCN Guidelines advise the consideration of Breast MRI as an adjunct to screening mammography in patients whose Lifetime risk to develop breast cancer is 20% or higher. This exam was interpreted at Station ID: [id number]. NOTE: For mammograms, a report in lay terms will be sent to the patient. Approximately 15% of breast malignancies will not be visualized mammographically. In the management of a palpable breast mass, a negative mammogram must not discourage biopsy of a clinically suspicious lesion. Electronically Signed By: Salina Allan M.D., Ph.D. bradford/aime:09/03/2024 00:11:59 letter sent: Normal Exam ACR BI-RADS Category 1: Negative
== END ==
LOC: MAMMO 17:37
PROVIDERS: Family Provider Student in an Organized Health Care Education/Training Program; PCP Student in an Organized Health Care Education/Training Program; Referring Provider Student in an Organized Health Care Education/Training Program; Visit Provider Student in an Organized Health Care Education/Training Program
DX: Z12.31 Encounter for screening mammogram for malignant neoplasm of breast (principal); R92.333 Mammographic heterogeneous density, bilateral breasts; Z80.3 Family history of malignant neoplasm of breast
CPT/HCPCS: 77063; 77067

== ENCOUNTER 2025-01-09 08:37 | Day surgery (SDC) | payer MEDICARE, SELFPAY ==
[2025-01-09] MEDS: LACTATED RINGERS 1,000 ML 100 ML IV (09:05)
[2025-01-09 09:07] VITALS: BP 120/74; PULSE 71; RESP 18; TEMP 36.4; O2SAT 97
--- NOTE | 2025-01-09 09:22 | SUR.PREOP ---
drank small cup of water at 0830. Case will be delayed until 10:30
--- NOTE | 2025-01-09 09:53 | P.HP_ITS ---
History of Present Illness History of Present Illness Date Patient Seen: 01/09/25 Chief complaint: Screening Colonoscopy Narrative: Follow-up screening colonoscopy [facility] Medical History Plantar warts Acne Allergies (~2010) Osteopenia (~2013) Fractures (~1969) Ankle pain Mumps (~1959) Measles (~1961) Chicken pox (~1959) Tinnitus History of urinary incontinence (~2014) Hemorrhoid (~1988) Colon polyps (~2004) Surgical History Anesthesia [place] teeth removed (~1973) History of tooth extraction Tumor (~2011) Family History Father Stroke Mother Congestive heart failure Brother Cancer Grandfather History of heart disease Grandfather Cancer Grandmother Cancer Social History Smoking Status: Former smoker alcohol intake: current Meds Home Medications and Allergies Home Medications Medication Instructions Recorded Confirmed Type cholecalciferol (vitamin D3) 50 50 mcg PO DAILY #90 tabs 07/23/23 11/23/24 Rx mcg (2,000 unit) tablet sodium,potassium,mag sulfates 17.5 See Rx Instructions PO .COMPLEX 12/23/24 Rx gram-3.13 gram-1.6 gram oral soln #354 mL (Suprep Bowel Prep Kit) Allergies Allergy/AdvReac Type Severity Reaction Status Date / Time No Known Drug Allergies Allergy Verified 11/23/24 08:01 Exam Vital Signs (past 8 hours): - 01/09/25 09:07 Temperature 97.5 F L Pulse Rate 71 Respiratory Rate 18 Blood Pressure 120/74 Pulse Oximetry 97 Oxygen Delivery Method Room Air Oxygen Delivery Method Room Air Narrative Exam Narrative: Oropharynx free of lesions Chest clear to auscultation percussion Cardiac exam reveals no S3 or murmur Assessment & Plan Assessment & Plan narrative: Follow-up screening colonoscopy. Risks, benefits, alternatives have been explained. Time-Based Coding :: [TOTAL MINUTES] spent with patient and on the chart (including review of chart, obtaining history, exam, reviewing outside data, placing orders, documenting exam and treatment plan, and counseling patient) on [DATE]. PROFEE Legal Aide Document charge(s): No
--- NOTE | 2025-01-09 09:54 | PM.OP.COLON ---
Operative Date/Time/Diagnoses Date of procedure: 01/09/25 Pre-op diagnosis: See indication and findings Post-op diagnosis: same Procedure & Clinicians Study performed: Colonoscopy Same procedure as scheduled: Yes Indications: Follow-up screening Surgeon: Feroz Watkins Procedure Notes Procedure in detail: After informed consent was obtained the patient was placed in left lateral decubitus position. The video colonoscope was introduced in the rectum slowly advanced cecum. Preparation was good. On slow withdrawal mucosa was carefully examined. The scope was removed. The patient tolerated procedure well. Blood loss none Complications none Sedation mac Findings 1. Normal colonoscopy to cecum Patient should have follow-up colonoscopy 10 years
--- NOTE | 2025-01-09 10:25 | SUR.OPER ---
SCOPE: HETAL 3 140
[2025-01-09 10:48] VITALS: BP 100/62; PULSE 62; RESP 16; TEMP 36.2; O2SAT 90
[2025-01-09 10:53] VITALS: BP 103/64; PULSE 63; RESP 16; O2SAT 94
[2025-01-09 10:58] VITALS: BP 108/68; PULSE 63; RESP 14; O2SAT 94
[2025-01-09 11:03] VITALS: BP 119/72; PULSE 73; RESP 16; TEMP 36.3; O2SAT 96
[2025-01-09 11:11] VITALS: BP 118/71; PULSE 64; RESP 15; TEMP 36.3; O2SAT 97
== END 2025-01-09 11:18 | disposition home or self-care (01) ==
PROVIDERS: Family Provider Student in an Organized Health Care Education/Training Program; PCP Student in an Organized Health Care Education/Training Program; Referring Provider Internal Medicine Gastroenterology; Visit Provider Internal Medicine Gastroenterology
PROC: 0DJD8ZZ Inspection of Lower Intestinal Tract, Via Natural or Artificial Opening Endoscopic (ICD-10-PCS; CPT 45378; principal; 2025-01-09 09:30)
DX: Z12.11 Encounter for screening for malignant neoplasm of colon (principal)
CPT/HCPCS: G0121; J2704